=== PATIENT | male | born 1945 | race Caucasian/White ===

== ENCOUNTER 2022-03-28 11:53 | Emergency (ER) | payer BC ==
[~2022-03-28] VITALS: Ht 190.5 cm; Wt 97.5 kg
[2022-03-28 13:32] LABS: BASOPHILS % (AUTO) 0.5 % (0.0-5.0); EOSINOPHILS % (AUTO) 0.8 % (0.0-8.0); HEMATOCRIT 43.5 % (42-54); LYMPHOCYTES % (AUTO) 31.5 % (21.0-51.0); MEAN CORPUSCULAR HEMOGLOBIN 32.5 pg (27.0-33.0); MEAN CORPUSCULAR HGB CONC 35.4 g/dL (32.0-36.0); MEAN CORPUSCULAR VOLUME 91.8 fL (79-99); MONOCYTES % (AUTO) 11.5 % (3.0-13.0); NEUTROPHILS % (AUTO) 55.5 % (40.0-77.0); PLATELET COUNT (AUTO) 216 K/uL (130-400); RED BLOOD CELL COUNT(AUTO) 4.74 MIL/uL (4.50-6.20); RED CELL DISTRIBUTION WIDTH 11.9 % (11.0-15.5); WHITE BLOOD COUNT (AUTO) 5.9 K/uL (4.8-10.8)
[2022-03-28 13:51] LABS: POTASSIUM 4.6 mmol/L (3.5-5.1)
[2022-03-28 13:54] LABS: TOTAL PROTEIN, SERUM 7.1 g/dL (6.0-8.3)
[2022-03-28 15:31] VITALS: BP 150/69
== END 2022-03-28 15:33 | disposition home or self-care (01) ==
LOC: EDH 11:53
DX: I49.9 Cardiac arrhythmia, unspecified (principal); I44.0 Atrioventricular block, first degree; Z79.899 Other long term (current) drug therapy; Z90.49 Acquired absence of other specified parts of digestive tract
CPT/HCPCS: 36415; 80053; 84484; 85025; 93005